=== PATIENT | female | born 1960 | race Caucasian/White ===

== ENCOUNTER 2016-10-26 16:53 | Emergency (ER) | payer OTHER ==
[~2016-10-26] VITALS: Wt 81.0 kg
[~2016-10-26 16:53] MED LIST: HYD25 PO; HYDR-902 PO; IRBE300T15 PO; METF-480 PO
[2016-10-26] MEDS ORDERED: ACETAMINOPHEN 500 MG TAB PO STA (17:47)
[2016-10-26] MEDS ORDERED: ACET500C5 PO (18:02)
[2016-10-26] MEDS ORDERED: NEOM28OI TP (18:02)
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
== END 2016-10-26 18:17 | disposition home or self-care (01) ==
LOC: FTE 16:53
DX: T23.201A Burn of second degree of right hand, unspecified site, initial encounter (principal); I10 Essential (primary) hypertension; E11.9 Type 2 diabetes mellitus without complications; X12.XXXA Contact with other hot fluids, initial encounter; Y92.9 Unspecified place or not applicable; Z79.84 Long term (current) use of oral hypoglycemic drugs
CPT/HCPCS: 16020; Z7502; Z7610